=== PATIENT | male | born 1940 | race Caucasian/White ===

== ENCOUNTER 2018-01-19 13:16 | Emergency (ER) | payer OTHER ==
[~2018-01-19] VITALS: Ht 172.7 cm; Wt 81.6 kg
[2018-01-19] MEDS ORDERED: MOTRIN IB200 MG (13:58)
[2018-01-19] MEDS ORDERED: LIPITOR40 MG (13:58)
[2018-01-19] MEDS ORDERED: PLAVIX75 MG (13:58)
[2018-01-19] MEDS ORDERED: DIOVAN320 MG (13:59)
[2018-01-19] MEDS ORDERED: NORVASC5 MG (13:59)
== END 2018-01-19 16:18 | disposition home or self-care (01) ==
LOC: ER 13:16
DX: S80.01XA Contusion of right knee, initial encounter (principal); W18.09XA Striking against other object with subsequent fall, initial encounter; Y93.89 Activity, other specified; Y92.018 Other place in single-family (private) house as the place of occurrence of the external cause; Y99.8 Other external cause status